=== PATIENT | female | born 1985 | race Caucasian/White ===

== ENCOUNTER 2019-02-03 06:50 | Emergency (ER) | payer OTHER ==
[~2019-02-03] VITALS: Ht 170 cm; Wt 103.0 kg
[~2019-02-03 06:50] MED LIST: CPR500T PO; HYDR1TAB PO; IBUP-15; LEVAQUIN; PRM25T PO; TYLENOL; VICODIN
[2019-02-03] MEDS ORDERED: fentaNYL INJECTION 100 MCG/2 ML AMP IVP STA ×2 (07:05→08:59)
[2019-02-03] MEDS ORDERED: KETOROLAC 30 MG/ML VIAL IVP STA (07:05)
[2019-02-03] MEDS ORDERED: NS IV 1000 ML 1,000 ML IV ONE (07:05)
--- NOTE | 2019-02-03 07:15 | ED Abdominal Pain ---
General Chief Complaint: Abdominal/GI Problems Stated Complaint: SEVERE LOWER ABD PAIN; NAUSEA Nursing Triage Note: rlq abdominal pain since . Sepsis Screen: No Definite Risk Source of Information: Patient Exam Limitations: No Limitations History of Present Illness Date Seen by Provider: Feb 03, 2019 Time Seen by Provider: 07:02 Initial Comments Here with report of right lower quadrant abdominal pain that has been going on for the last 4 days. Seen a few days ago and initiated on Cipro for a UA that showed positive for red blood cells and leuks. She did that for 3 days but still is not better. States the pain moved from more central right sided to right lower quadrant and is worse with movement including walking and even the car ride here. Does have moderate nausea. No diarrhea, dysuria or vomiting currently. Last by mouth intake was last night. Last menstrual period was approximately one month ago. Does have history of kidney stones. Timing/Duration: 4-5 Days, Getting Worse Severity/Quality: Moderate, Severe, Cramping Location: RLQ Radiation: Flank Activities at Onset: None Modifying Factors: Worsens With Eating, Worsens With Movement Associated Symptoms: No Back Pain, No Chest Pain, No Fever/Chills, No Heartburn; Nausea/Vomiting; No Shortness of Air, No Swelling/Mass in Abdomen, No Weakness Allergies and Home Medications Allergies Coded Allergies: Sulfa (Sulfonamide Antibiotics) (Verified Allergy, Unknown, 10/08/07) Patient Home Medication List Home Medication List Reviewed: Yes Review of Systems Review of Systems Constitutional: see HPI EENTM: No Symptoms Reported Respiratory: No Symptoms Reported Cardiovascular: No Symptoms Reported Gastrointestinal: See HPI, Abdominal Pain; Denies Diarrhea; Nausea Genitourinary: Denies Burning, Denies Discharge Musculoskeletal: no symptoms reported Skin: no symptoms reported Psychiatric/Neurological: No Symptoms Reported All Other Systems Reviewed Negative Unless Noted: Yes Past Ariuqxg-Zehvbx-[place] Hx Past Med/Social Hx: Reviewed Nursing Past Med/Soc Hx Patient Social History Alcohol Use: Occasionally Uses Recreational Drug Use: No Smoking Status: Never a Smoker 2nd Hand Smoke Exposure: No Recent Foreign Travel: No Contact w/Someone Who Travel: No Recent Infectious Disease Expo: No Recent Hopitalizations: No Physical Abuse: No Sexual Abuse: No Mistreated: No Fear: No Immunizations Up To Date Tetanus Booster (TDap): Unknown Seasonal Allergies Seasonal Allergies: No Past Medical History Surgeries: Yes Section, Tubal Ligation Respiratory: No Cardiac: No Neurological: No : No Reproductive Disorders: No [employer] History: Tubal Ligation Sexually Transmitted Disease: No Genitourinary: No Gastrointestinal: No Musculoskeletal: No Endocrine: No HEENT: No Cancer: No Psychosocial: No Integumentary: No Blood Disorders: No Family Medical History Reviewed Nursing Family Hx No Pertinent Family Hx Physical Exam Vital Signs Vital Signs - First Documented 02/03/19 06:55 Temp 35.8 Pulse 99 Resp 20 B/P (MAP) 125/93 (104) Pulse Ox 100 O2 Delivery Room Air Capillary Refill : Less Than 3 Seconds Height/Weight/BMI Height: '" Weight: lbs. oz. kg; 35.00 BMI Method: General Appearance: WD/WN, no apparent distress HEENT: PERRL/EOMI, pharynx normal Neck: full range of motion, supple Respiratory: lungs clear, normal breath sounds Cardiovascular: regular rate, rhythm, no murmur Gastrointestinal: soft, guarding (right lower quadrant), rebound, tenderness Extremities: non-tender, normal inspection Back: normal inspection, no CVA tenderness, no vertebral tenderness Neurologic/Psychiatric: alert, oriented x 3 Skin: normal color, warm/dry Focused Exam Lactate Level 02/03/19 09:06: Lactic Acid Level 0.68 Lactic Acid Level Laboratory Tests Test 02/03/19 09:06 Lactic Acid Level 0.68 MMOL/L (0.50-2.00) Progress/Results/Core Measures Results/Orders Lab Results Laboratory Tests Test 02/03/19 07:05 02/03/19 07:10 02/03/19 09:06 Range/Units Urine Color YELLOW Urine Clarity CLEAR Urine pH 6 5-9 Urine Specific [place] 1.020 1.016-1.022 Urine Protein 1+ H NEGATIVE Urine Glucose (UA) NEGATIVE NEGATIVE Urine Ketones NEGATIVE NEGATIVE Urine Nitrite NEGATIVE NEGATIVE Urine Bilirubin NEGATIVE NEGATIVE Urine Urobilinogen NORMAL NORMAL MG/DL Urine Leukocyte Esterase 3+ H NEGATIVE Urine RBC (Auto) 3+ H NEGATIVE Urine RBC 25-50 H /HPF Urine WBC TNTC H /HPF Urine Squamous Epithelial Cells 2-5 /HPF Urine Crystals NONE /LPF Urine Bacteria FEW H /HPF Urine Casts NONE /LPF Urine Mucus NEGATIVE /LPF Urine Culture Indicated YES White Blood Count 11.7 H 4.3-11.0 10^3/uL Red Blood Count 5.45 4.35-5.85 10^6/uL Hemoglobin 15.3 11.5-16.0 G/DL Hematocrit 46 35-52 % Mean Corpuscular Volume 85 80-99 FL Mean Corpuscular Hemoglobin 28 25-34 PG Mean Corpuscular Hemoglobin Concent 33 32-36 G/DL Red Cell Distribution Width 14.0 10.0-14.5 % Platelet Count 417 H 130-400 10^3/uL Mean Platelet Volume 9.7 7.4-10.4 FL Neutrophils (%) (Auto) 59 42-75 % Lymphocytes (%) (Auto) 26 12-44 % Monocytes (%) (Auto) 8 0-12 % Eosinophils (%) (Auto) 6 0-10 % Basophils (%) (Auto) 0 0-10 % Neutrophils # (Auto) 7.0 1.8-7.8 X 10^3 Lymphocytes # (Auto) 3.1 1.0-4.0 X 10^3 Monocytes # (Auto) 0.9 0.0-1.0 X 10^3 Eosinophils # (Auto) 0.7 H 0.0-0.3 10^3/uL Basophils # (Auto) 0.0 0.0-0.1 10^3/uL Sodium Level 138 135-145 MMOL/L Potassium Level 3.7 3.6-5.0 MMOL/L Chloride Level 106 98-107 MMOL/L Carbon Dioxide Level 21 21-32 MMOL/L Anion Gap 11 5-14 MMOL/L Blood Urea Nitrogen 12 7-18 MG/DL Creatinine 0.80 0.60-1.30 MG/DL Estimat Glomerular Filtration Rate > 60 BUN/Creatinine Ratio 15 Glucose Level 98 70-105 MG/DL Calcium Level 9.7 8.5-10.1 MG/DL Corrected Calcium 9.5 8.5-10.1 MG/DL Total Bilirubin 0.5 0.1-1.0 MG/DL Aspartate Amino Transf (AST/SGOT) 28 5-34 U/L Alanine Aminotransferase (ALT/SGPT) 41 0-55 U/L Alkaline Phosphatase 61 40-136 U/L C-Reactive Protein High Sensitivity 1.10 H 0.00-0.50 MG/DL Total Protein 7.4 6.4-8.2 GM/DL Albumin 4.2 3.2-4.5 GM/DL Lactic Acid Level 0.68 0.50-2.00 MMOL/L My Orders Orders - TERI SNOW MD Urine Bedside (02/03/19 07:05) Cbc With Automated Diff (02/03/19 07:05) Comprehensive Metabolic Panel (02/03/19 07:05) Hs C Reactive Protein (02/03/19 07:05) Ua Culture If Indicated (02/03/19 07:05) Ed Iv/Invasive Line Start (02/03/19 07:05) Ns Iv 1000 Ml (Sodium Chloride 0.9%) (02/03/19 07:05) Fentanyl Injection (Sublimaze Injection (02/03/19 07:05) Ketorolac Injection (Toradol Injection) (02/03/19 07:05) Urine Culture (02/03/19 07:05) Ct Abd/Pelvis Wo(Kidney Stone) (02/03/19 07:35) Lactic Acid Analyzer (02/03/19 08:59) Blood Culture (02/03/19 08:59) Ondansetron Injection (Zofran Injectio (02/03/19 09:00) Fentanyl Injection (Sublimaze Injection (02/03/19 08:59) Ceftriaxone For Iv Use (Rocephin For I (02/03/19 09:15) Abdomen/Kub 1view (02/03/19 09:51) Medications Given in ED Current Medications Medications Dose Ordered Sig/Angel Route Start Time Stop Time Status Last Admin Dose Admin Ceftriaxone Sodium 1000 mg/ Sterile Water 10 ml @ 200 mls/hr ONCE ONCE IV 02/03/19 09:15 02/03/19 09:17 DC 02/03/19 09:50 200 MLS/HR Ondansetron HCl 4 mg ONCE ONCE IVP 02/03/19 09:00 02/03/19 09:01 DC 02/03/19 09:15 4 MG Sodium Chloride 1,000 ml @ 0 mls/hr Q0M ONCE IV 02/03/19 07:05 02/03/19 07:07 DC 02/03/19 07:29 1,000 MLS/HR Vital Signs/I&O 02/03/19 06:55 Temp 35.8 Pulse 99 Resp 20 B/P (MAP) 125/93 (104) Pulse Ox 100 O2 Delivery Room Air Blood Pressure Mean: 104 Progress Progress Note : Progress Note Seen and evaluated. IV, labs, UA, UCG, normal saline 1 L bolus, Toradol 30 mg IV and fentanyl 50 g IV ordered. Anticipate CT based on UA results. CT abdomen pelvis ordered without contrast based on UA studies. 0846: CT results noted. Patient has incredibly large stone to the right kidney and medullary calcinosis bilaterally. No obvious ureteral stone otherwise. There is hydronephrosis related to the large stone in the right kidney. I do have concerns about infec tion. I did discuss the case with Dr. Archer. We will go ahead and try to get good pain control and she will follow her up in the office. Recommending one dose of IV Rocephin now and then continued treatment with Bactrim. Patient is allergic to Bactrim so we will use cefdinir and he agrees. 0930: We did give Zofran 4 mg IV and fentanyl 75 g IV. We will get a KUB per recommendation of Dr. Archer. 1005: I have rediscussed all of this with the patient. She will call for appointment with Dr. Archer. She is feeling better now. We we'll prescribe outpatient hydrocodone as well as the antibiotic and nausea medicine. She was comfortable with trying outpatient therapy. Discharged home with return precautions. Patient verbalize understanding instructions and agreement with plan. Diagnostic Imaging Diagonstic Imaging: CT Plain Films/CT/US/NM/MRI: abdomen, pelvis Comments [facility], [place] NAME: DARRION CASTILLO [facility] REC#: [id number] PT STATUS: REG ER : 1985 PHYSICIAN: TERI SNOW MD ADMIT DATE: 02/03/19/ER Draft Date of Exam:02/03/19 CT ABD/PELVIS WO(KIDNEY STONE) PROCEDURE: CT urinary tract, rule out kidney stone. TECHNIQUE: Multiple contiguous axial images were obtained through the abdomen and pelvis without the use of intravenous contrast. Auto Exposure Controls were utilized during the CT exam to meet ALARA standards for radiation dose reduction. INDICATION: Severe right-sided abdominal pain and nausea. The lung bases are clear. The liver shows diffuse low density consistent with hepatic steatosis. No discrete liver mass is identified. Gallbladder is unremarkable. No biliary duct dilatation is seen. The pancreas and spleen are unremarkable. No adrenal mass is detected. Calcific densities in the medullary portions of both kidneys are noted suggestive of medullary nephrocalcinosis. There is also a large staghorn calculus involving the right kidney, occupying the right renal pelvis as well as mid and right lower pole infundibuli. This does produce moderate hydronephrosis. Calculus measures at least 4.2 cm x 2.7 cm. No definite ureteral calculi are seen. Bladder is unremarkable. Aorta is non-aneurysmal. Small and large bowel loops are normal caliber. Appendix is unremarkable. No free fluid or loculated fluid collection is seen. The uterus is unremarkable. IMPRESSION: 1. Findings consistent with medullary nephrocalcinosis. There is also large right-sided staghorn calculus producing moderate hydronephrosis. No definite ureteral calculi are seen. 2. Hepatic steatosis. 3. No CT evidence of acute appendicitis. Dictated on workstation # [id number] Dict: 02/03/1927 Trans: 02/03/19 0838 [facility], [facility]–[id number] Interpreted by: SHAUNA MELLO MD Electronically signed by: Departure Impression Primary Impression: Medullary calcification of kidney Additional Impressions: Right kidney stone Urinary tract infection Qualified Codes: N30.01 - Acute cystitis with hematuria Disposition: HOME, SELF-CARE Condition: Improved Departure-Patient Inst. Decision time for Depature: 10:07 Referrals: MARTIN ARCHER MD Patient Instructions: Kidney Stones (DC), Acute Abdomen (Belly Pain), Adult (DC), Urinary Tract Infection, Adult (DC) Add. Discharge Instructions: All discharge instructions reviewed with patient and/or family. Voiced understanding. Take medications as directed. Call Dr. Archer's office today to get appointment t his week. Return for worsening, fever, vomiting, weakness, breathing problems or other concerns as needed. Scripts Ondansetron (Ondansetron Odt) 4 Mg Tab.rapdis 4 MG PO Q6H PRN for NAUSEA/VOMITING, #12 TAB 0 Refills Prov: TERI SNOW MD 02/03/19 Hydrocodone Bit/Acetaminophen (LORTAB 7.5 MG TABLET) 1 Ea Tablet 1 EACH PO Q6H, #12 TAB 0 Refills Prov: TERI SNOW MD 02/03/19 Cefdinir (Cefdinir) 300 Mg Capsule 300 MG PO BID, #14 CAP 0 Refills Prov: TERI SNOW MD 02/03/19 Copy Copies To 1: MARTIN ARCHER MD, TIMOTHY D MD Feb 03, 2019 07:15
[2019-02-03 07:16] LABS: BILIRUBIN,URINE NEGATIVE (NEGATIVE); CLARITY,URINE CLEAR; COLOR,URINE YELLOW; GLUCOSE, URINE (UA) NEGATIVE (NEGATIVE); KETONES,URINE NEGATIVE (NEGATIVE); LEUKOCYTE ESTERASE ,URINE 3+ (NEGATIVE); NITRITE,URINE NEGATIVE (NEGATIVE); PH,URINE 6 (5-9); PROTEIN,URINE 1+ (NEGATIVE)
[2019-02-03 07:21] LABS: BASOPHILS % (AUTO) 0 % (0-10); EOSINOPHILS # (AUTO) 0.7 10^3/uL (0.0-0.3); EOSINOPHILS % (AUTO) 6 % (0-10); HEMATOCRIT 46 % (35-52); HEMOGLOBIN 15.3 G/DL (11.5-16.0); LYMPHOCYTES # (AUTO) 3.1 X 10^3 (1.0-4.0); LYMPHOCYTES % (AUTO) 26 % (12-44); MEAN CORPUSCULAR HEMOGLOBIN 28 PG (25-34); MEAN CORPUSCULAR HGB CONC 33 G/DL (32-36); MEAN CORPUSCULAR VOLUME 85 FL (80-99); MEAN PLATELET VOLUME 9.7 FL (7.4-10.4); MONOCYTES # (AUTO) 0.9 X 10^3 (0.0-1.0); MONOCYTES % (AUTO) 8 % (0-12); NEUTROPHILS % (AUTO) 59 % (42-75); PLATELET COUNT 417 10^3/uL (130-400); WHITE BLOOD COUNT 11.7 10^3/uL (4.3-11.0)
[2019-02-03 07:31] LABS: BACTERIA,URINE FEW /HPF; RBC,URINE 25-50 /HPF; WBC,URINE TNTC /HPF
[2019-02-03 07:38] LABS: ALANINE AMINOTRANSFERASE 41 U/L (0-55); ALBUMIN 4.2 GM/DL (3.2-4.5); ALKALINE PHOSPHATASE 61 U/L (40-136); BILIRUBIN,TOTAL 0.5 MG/DL (0.1-1.0); BUN/CREATININE RATIO 15; CALCIUM 9.7 MG/DL (8.5-10.1); CARBON DIOXIDE 21 MMOL/L (21-32); CHLORIDE 106 MMOL/L (98-107); GFR ESTIMATED > 60; GLUCOSE 98 MG/DL (70-105); POTASSIUM 3.7 MMOL/L (3.6-5.0); SODIUM 138 MMOL/L (135-145); TOTAL PROTEIN 7.4 GM/DL (6.4-8.2)
--- NOTE | 2019-02-03 08:39 | Diagnostic Imaging Report ---
PROCEDURE: CT urinary tract, rule out kidney stone. TECHNIQUE: Multiple contiguous axial images were obtained through the abdomen and pelvis without the use of intravenous contrast. Auto Exposure Controls were utilized during the CT exam to meet ALARA standards for radiation dose reduction. INDICATION: Severe right-sided abdominal pain and nausea. The lung bases are clear. The liver shows diffuse low density consistent with hepatic steatosis. No discrete liver mass is identified. Gallbladder is unremarkable. No biliary duct dilatation is seen. The pancreas and spleen are unremarkable. No adrenal mass is detected. Calcific densities in the medullary portions of both kidneys are noted suggestive of medullary nephrocalcinosis. There is also a large staghorn calculus involving the right kidney, occupying the right renal pelvis as well as mid and right lower pole infundibuli. This does produce moderate hydronephrosis. Calculus measures at least 4.2 cm x 2.7 cm. No definite ureteral calculi are seen. Bladder is unremarkable. Aorta is non-aneurysmal. Small and large bowel loops are normal caliber. Appendix is unremarkable. No free fluid or loculated fluid collection is seen. The uterus is unremarkable. IMPRESSION: 1. Findings consistent with medullary nephrocalcinosis. There is also large right-sided staghorn calculus producing moderate hydronephrosis. No definite ureteral calculi are seen. 2. Hepatic steatosis. 3. No CT evidence of acute appendicitis. Dictated by: Dictated on workstation # [id number]
[2019-02-03] MEDS ORDERED: ONDANSETRON 4 MG/2 ML (SDV) Z0FRAN IVP ONE (09:00)
[2019-02-03] MEDS ORDERED: cefTRIAXone FOR IV USE 1,000 MG in WATER (STERILE) FOR INJECTION 10 ML IV ONE (09:15)
[2019-02-03] MEDS ORDERED: CEFD300C3 PO (10:11)
[2019-02-03] MEDS ORDERED: HYDR-34 PO (10:11)
[2019-02-03] MEDS ORDERED: ONDA4TAB11 PO (10:11)
[2019-02-03 10:20] VITALS: BP 107/61
--- NOTE | 2019-02-03 10:20 | Diagnostic Imaging Report ---
INDICATION: Pain. COMPARISON: Correlation is made with radiographs of 10/27/[address] of the same date. FINDINGS: The staghorn calculus disease in the right kidney has progressed in size, extent, and density from the previous radiograph. The largest contiguous stone mass is about 5.1 cm in maximal dimension with additional smaller stones within upper and lower pole calyces on the right. No radiodense distal ureteral stones are found. The left-sided calcifications and medullary nephrosclerosis are better visualized at the earlier CT. IMPRESSION: Bilateral medullary nephrocalcinosis with progressive staghorn calculus disease in the right kidney. No radiodense ureteral or pelvic stone. Nonobstructed bowel gas pattern. Dictated by: Dictated on workstation # [id number]
== END 2019-02-03 10:25 | disposition home or self-care (01) ==
LOC: EDUNIT# 06:50 → ER 06:54
DX: N28.89 Other specified disorders of kidney and ureter (principal); N13.2 Hydronephrosis with renal and ureteral calculous obstruction; N39.0 Urinary tract infection, site not specified; Z88.2 Allergy status to sulfonamides; Z98.51 Tubal ligation status
CPT/HCPCS: 36415; 74018; 74176; 80053; 81000; 83605; 84703; 85025; 86141; 87040; 87088; 96361; 96374; 96375; 96376